=== PATIENT | male | born 1960 | race Caucasian/White ===

== ENCOUNTER 2023-03-26 08:05 | Outpatient (REF) | payer BC, SELFPAY ==
--- NOTE | ~2023-03-26 | XR_ITS ---
EXAMINATION: Frontal views of both knee-upright and frontal and lateral views of the left knee. CLINICAL INFORMATION: Left knee pain. Right knee pain. COMPARISON: None. TECHNIQUE: Single frontal upright view of both knees and axillary lateral view of the left knee. FINDINGS: Left knee: Postsurgical changes of arthroplasty is noted with intact hardware and satisfactory alignment. Small suprapatellar soft tissue swelling is present likely represent postsurgical change. Enthesopathy versus postsurgical change is noted at the insertional site of the quadriceps tendon to the superior pole of the patella. Right knee: [id number] medial compartmental osteoarthrosis on this limited frontal view only projection. XR/XR knee LT 2V IMPRESSION: Left knee shows postsurgical changes of left knee arthroplasty with intact hardware and satisfactory alignment. The right knee on this limited frontal view shows moderate osteoarthrosis of the medial compartment.
--- NOTE | ~2023-03-26 | XR_ITS ---
EXAMINATION: Frontal views of both knee-upright and frontal and lateral views of the left knee. CLINICAL INFORMATION: Left knee pain. Right knee pain. COMPARISON: None. TECHNIQUE: Single frontal upright view of both knees and axillary lateral view of the left knee. FINDINGS: Left knee: Postsurgical changes of arthroplasty is noted with intact hardware and satisfactory alignment. Small suprapatellar soft tissue swelling is present likely represent postsurgical change. Enthesopathy versus postsurgical change is noted at the insertional site of the quadriceps tendon to the superior pole of the patella. Right knee: [id number] medial compartmental osteoarthrosis on this limited frontal view only projection. XR/XR knee standing BI IMPRESSION: Left knee shows postsurgical changes of left knee arthroplasty with intact hardware and satisfactory alignment. The right knee on this limited frontal view shows moderate osteoarthrosis of the medial compartment.
== END 2023-03-26 08:06 | disposition home or self-care (01) ==
LOC: HO.HOSX 08:05
PROVIDERS: Visit Provider Orthopaedic Surgery
DX: M25.562 Pain in left knee (principal); M25.561 Pain in right knee
CPT/HCPCS: 73560; 73565

== ENCOUNTER 2023-11-04 08:21 | Outpatient (AMB) | payer OTHER, BC, SELFPAY ==
--- NOTE | 2023-11-04 08:21 | A.OFFVIS_ITS ---
Intake Vital Signs 11/04/23 08:30 Height 6 ft Weight 220 lb BMI 29.8 Intake Visit Reasons: Ne Prob - WC - Right Shoulder Injury/ Confirmed Intake Note: Bright is a 63 year old Right handed male who presents with Right shoulder pain. Patient reports his pain has been going on for 3 weeks and is a 10 on the 1-10 pain scale. He states that when he was at work he slipped and fell on his Right shoulder. He denies any shoulder pain or weakness prior to that injury. The patient states that he has weakness when lifting his right hand above shou lder height. The patient did undergo left total knee replacement surgery on 10/23/2022. He reports minimal discomfort in his left knee. Allergies No Known Allergies Allergy (Verified 11/04/23 08:33) Medication List - Last Reconciled 11/04/23 by Rashaad Amador MD aspirin 81 mg PO BID cyclobenzaprine 5 mg PO TID duloxetine 0 mg PO duloxetine 30 mg PO DAILY gabapentin 1,200 mg PO BID hydrocodone-acetaminophen 5-300 mg 1 tab PO Q12H PRN lisinopril 2.5 mg PO DAILY metoprolol succinate ER 50 mg PO DAILY oxycodone-acetaminophen 5-325 mg 1 tab PO QID PRN rosuvastatin 40 mg PO DAILY PFSH Surgical History (Updated 03/26/23 @ 15:08 by Kristie Alvarez CMA) H/O right knee surgery (~1997) History of total left knee replacement (10/23/22) Social History (Updated 03/26/23 @ 15:09 by Kristie Alvarez CMA) Current occupational status: employed Current occupation: maintenance Physical Exam Vital Signs: BMI result Body Mass Index 29.8 Const Other: Well-nourished well-developed very friendly male awake alert and oriented x3 in no acute distress Extrem Other: Bilateral upper extremity examination shows good capillary refill, no skin lesions noted, normal sensation light touch Right shoulder examination shows decreased active range of motion but full passive range of motion when compared to his left shoulder, 3/5 strength with supraspinatus testing, positive impingement signs, tenderness over his acromioclavicular joint, no instability Results Reviewed Results Reviewed: MRI report of the patient's right shoulder shows a large rotator cuff tear as well as tearing of his biceps tendon and possible SLAP tear Assessment & Plan Assessment & Plan (1) Right shoulder pain: Code(s): M25.511 - Pain in right shoulder Plan Mr. Stevens presents with progressively worsening right shoulder pain and weakness due to a large rotator cuff tear as well as tearing of his biceps tendon and a possible SLAP lesion. I had a lengthy discussion with the patient regarding the treatment options. At this point the patient has failed non operative treatments. The risks and benefits of right shoulder surgery were discussed at length with the patient. The patient is interested in proceeding with surgery. Because of the complexity of the patient's injure I will have him evaluated by Dr. Walls. The patient may need repair of his biceps tendon and labral tear as well as possible grafting of his large rotator cuff tear. The patient will continue with his range of motion exercises in the meantime to prevent stiffness. Feel free to call me at any time should questions regarding his orthopedic management arise. I spent 22 minutes in reviewing the patient's records and imaging studies, seeing the patient and documenting in the medical record. Orders: Orders XR shoulder RT min 2V Today M25.511 - Pain in right shoulder Coding Level of Care Code Est Pt Level 2 (58175) Diagnoses Right shoulder pain M25.511
[2023-11-04 08:30] VITALS: BMI 29.8
== END 2023-11-04 08:54 | disposition home or self-care (01) ==
PROVIDERS: PCP Internal Medicine; Visit Provider Orthopaedic Surgery
DX: M75.101 Unspecified rotator cuff tear or rupture of right shoulder, not specified as traumatic (principal); S46.121A Laceration of muscle, fascia and tendon of long head of biceps, right arm, initial encounter
CPT/HCPCS: 99213

== ENCOUNTER 2023-11-04 09:49 | Outpatient (REF) | payer OTHER, SELFPAY ==
--- NOTE | ~2023-11-04 | XR_ITS ---
EXAMINATION: XR SHOULDER, RIGHT CLINICAL INFORMATION: Right shoulder pain COMPARISON: MRI of right shoulder 10/24/2023 TECHNIQUE: AP external rotation, Grashey, scapular Y, and axillary views of the right shoulder. FINDINGS: There are mild degenerative changes of glenohumeral joint and erosive changes in the greater tuberosity. No evidence of fracture or subluxation. Glenohumeral joint is preserved. XR/XR shoulder RT min 2V IMPRESSION: Mild degenerative changes
== END 2023-11-04 09:50 | disposition home or self-care (01) ==
LOC: HO.HOSX 09:49
PROVIDERS: Visit Provider Orthopaedic Surgery
DX: M25.511 Pain in right shoulder (principal)
CPT/HCPCS: 73030; 99212